=== PATIENT | male | born 1985 | race Two or more races ===

== ENCOUNTER 2017-10-17 04:33 | Emergency (ER) | payer BC ==
[~2017-10-17] VITALS: Ht 188 cm; Wt 109.9 kg
[2017-10-17] MEDS ORDERED: pantoprazole IV 80 MG in normal saline 100ml IV soln 100 ML IV ONE (04:45)
[2017-10-17] MEDS ORDERED: normal saline 1000ML IV soln IV ONE (04:45)
[2017-10-17] MEDS ORDERED: pantoprazole 40 MG vial IV ONE (04:55)
[2017-10-17] MEDS ORDERED: pantoprazole IV 40 MG in normal saline 100ml IV soln 100 ML IV ONE (04:55)
[2017-10-17 05:01] LABS: CLARITY,URINE CLEAR (Clear); COLOR,URINE STRAW (Yellow); GLUCOSE, URINE NEGATIVE (Neg); KETONES,URINE NEGATIVE (Neg); LEUKOCYTE ESTERASE ,URINE NEGATIVE (Neg); NITRITES, URINE NEGATIVE (Neg); OCCULT BLOOD,URINE NEGATIVE (Neg); PH,URINE 6.5 (4.8-8.0); PROTEIN,URINE NEGATIVE (Neg); UROBILINOGEN,URINE 0.2 E.U/dL (0.2-1.0)
[2017-10-17 05:09] LABS: UA COLLECTION TYPE CLN CATCH MIDSTREAM
[2017-10-17] MEDS ORDERED: famotidine 20mg tablet PO ONE (05:10)
[2017-10-17] MEDS ORDERED: LIDOcaine Viscous 15ml cup PO ONE (05:10)
[2017-10-17] MEDS ORDERED: mag hydrox/Alum hydrox/simeth 30ml oral suspension PO ONE (05:10)
[2017-10-17 05:18] LABS: BASOPHILS % (AUTO) 0.6 % (0-1); EOSINOPHILS # (AUTO) 0.3 X10'3 (0-0.9); EOSINOPHILS % (AUTO) 3.6 % (0-6); HEMATOCRIT 42.6 % (42.0-52.0); HEMOGLOBIN 15.1 g/dl (14.0-17.9); LYMPHOCYTES % (AUTO) 27.7 % (21-51); MEAN CORPUSCULAR HEMOGLOBIN 29.9 PG (27.0-31.0); MEAN CORPUSCULAR HGB CONC 35.3 % (33.0-36.5); MEAN CORPUSCULAR VOLUME 84.5 FL (78-98); MEAN PLATELET VOLUME 8.1 FL (7.4-10.4); MONOCYTES # (AUTO) 0.7 X10'3 (0-0.9); MONOCYTES % (AUTO) 9.3 % (2-12); NEUTROPHILS # (AUTO) 4.2 X10'3 (1.8-7.7); NEUTROPHILS % (AUTO) 58.8 % (42-75); PLATELET COUNT 266 X10'3 (140-440); RED BLOOD COUNT 5.04 X10'6 (4.70-6.10); RED CELL DISTRIBUTION WIDTH 12.8 % (11.5-14.5); WHITE BLOOD COUNT 7.2 X10'3 (4.5-11.0)
[2017-10-17 05:33] LABS: ALANINE AMINOTRANSFERASE 68 U/L (12-78); ALBUMIN 3.9 G/DL (3.4-5.0); ALBUMIN/GLOBULIN RATIO 1.1 (1.1-1.5); ALKALINE PHOSPHATASE 61 IU/L (46-116); ANION GAP 9 (8-16); ASPARTATE AMINO TRANSFERASE 23 U/L (10-37); BILIRUBIN,TOTAL 0.3 MG/DL (0.1-1.0); BLOOD UREA NITROGEN 11 MG/DL (7-18); BUN/CREATININE RATIO 11.3 (5.4-32.0); CALCIUM 9.4 MG/DL (8.5-10.1); CHLORIDE 105 MMOL/L (99-107); CREATININE 0.97 MG/DL (0.60-1.10); GLUCOSE 87 MG/DL (70-104); PROTHROMBIN TIME 10.2 SECONDS (9.0-12.0); SODIUM 140 MMOL/L (135-145); TOTAL CARBON DIOXIDE 25.8 MMOL/L (24-32); TOTAL PROTEIN 7.4 G/DL (6.4-8.2); eGFR 89 ML/MIN
[2017-10-17] MEDS ORDERED: PANT20TA2 PO (06:06)
[2017-10-17 06:24] VITALS: BP 147/102
[2017-10-17 09:35] LABS: OCCULT BLOOD STOOL NEGATIVE (Neg)
== END 2017-10-17 06:25 | disposition home or self-care (01) ==
LOC: ER 04:33
DX: K29.00 Acute gastritis without bleeding (principal); Z79.899 Other long term (current) drug therapy
CPT/HCPCS: 36415; 80053; 81003; 82272; 85025; 85610; 86885; 86900; 86901; 96361; 96374; 99284; C9113; J7030

== ENCOUNTER 2018-08-23 09:46 | Day surgery (SDC) | payer BC ==
[~2018-08-23] VITALS: Ht 188 cm; Wt 85.2 kg
[~2018-08-23 09:46] MED LIST: PANT20TA2 PO
[2018-08-23 10:15] VITALS: BP 153/96
[2018-08-23] MEDS ORDERED: heparin sodium, porcine/PF 100unit/ml 5ML syringe ICATH ONE (10:40)
[2018-08-23] MEDS ORDERED: LIDOcaine 1% 30ml preserv. free vial SQ ONE (10:40)
[2018-08-23] MEDS ORDERED: fentaNYL/PF 50MCG/1 ML 2ML syringe IV PRN (10:40)
[2018-08-23] MEDS ORDERED: midazolam 2 mg/2 ml injection IV PRN (10:40)
[2018-08-23] MEDS ORDERED: midazolam 2 mg/2 ml injection ONE (10:44)
[2018-08-23] MEDS ORDERED: heparin sodium, porcine/PF 100unit/ml 5ML syringe ONE (10:44)
[2018-08-23] MEDS ORDERED: fentaNYL/PF 50MCG/1 ML 2ML syringe ONE (10:44)
[2018-08-23] MEDS ORDERED: LIDOcaine 1%/PF 5ML 10 MG/ML VIAL ONE (10:44)
[2018-08-23] MEDS ORDERED: PANT40SU2 PO (10:46)
[2018-08-23] MEDS ORDERED: OXYC-658 PO (10:48)
[2018-08-23] MEDS ORDERED: LISI40TA4 PO (10:49)
[2018-08-23] MEDS ORDERED: ACET-812 PO (10:49)
[2018-08-23] MEDS ORDERED: CHOL2000 PO (10:50)
[2018-08-23] MEDS ORDERED: OMEG1CAP21 PO (10:53)
[2018-08-23] MEDS ORDERED: ASCO-261 PO (10:55)
[2018-08-23] MEDS ORDERED: LACT1CAP65 PO (10:55)
[2018-08-23] MEDS ORDERED: TRAZ150T78 PO (10:56)
[2018-08-23] MEDS ORDERED: UBID100C PO (10:56)
[2018-08-23 11:37] VITALS: BP 167/95
[2018-08-23 11:50] VITALS: BP 149/97
[2018-08-23 12:00] VITALS: BP 155/106
[2018-08-23 12:15] VITALS: BP 168/96
== END 2018-08-23 12:45 | disposition home or self-care (01) ==
LOC: SSTAY O 09:46
PROVIDERS: ATTEND Radiology Diagnostic Radiology
DX: C15.5 Malignant neoplasm of lower third of esophagus (principal); I10 Essential (primary) hypertension; K21.9 Gastro-esophageal reflux disease without esophagitis; G35 Multiple sclerosis; Z79.899 Other long term (current) drug therapy; Z98.890 Other specified postprocedural states
CPT/HCPCS: 36561; 76937; 77001; C1788; C1894; J1642; J2001; J2250; J3010; 99152; 99153; A6219

== ENCOUNTER 2019-04-11 07:49 | Day surgery (SDC) | payer BC ==
[~2019-04-11] VITALS: Ht 188 cm; Wt 73.8 kg
[~2019-04-11 07:49] MED LIST changes: +ACET-812 PO; +ASCO-261 PO; +CHOL2000 PO; +LACT1CAP65 PO; +LISI40TA4 PO; +OMEG1CAP21 PO; +OXYC-658 PO; -PANT20TA2 PO; +PANT40SU2 PO; +TRAZ150T78 PO; +UBID100C PO
[2019-04-11] MEDS ORDERED: normal saline 1000ml 1,000 ML IV PRN (08:20)
[2019-04-11] MEDS ORDERED: albumin 25% 100mL bottle x 1 IV PRN (08:20)
[2019-04-11] MEDS ORDERED: FENT1PAT13 TOP (08:45)
[2019-04-11] MEDS ORDERED: LORA-269 PO (08:45)
[2019-04-11] MEDS ORDERED: HYDR4TAB45 PO (08:45)
[2019-04-11] MEDS ORDERED: ONDA8TAB13 PO (08:45)
[2019-04-11] MEDS ORDERED: GABA-532 PO (08:45)
[2019-04-11] MEDS ORDERED: VANC1VIA21 PO (08:45)
[2019-04-11] MEDS ORDERED: PROC-8 PO (08:45)
[2019-04-11 09:00] VITALS: BP 139/92
== END 2019-04-11 09:30 | disposition home or self-care (01) ==
LOC: SSTAY O 07:49
PROVIDERS: ATTEND Radiology Diagnostic Radiology
DX: R18.8 Other ascites (principal); Z88.8 Allergy status to other drugs, medicaments and biological substances
CPT/HCPCS: 76705

== ENCOUNTER 2019-04-15 11:17 | Emergency (ER) | payer BC ==
[~2019-04-15] VITALS: Ht 185.4 cm; Wt 70.0 kg
[~2019-04-15 11:17] MED LIST changes: -ACET-812 PO; -ASCO-261 PO; -CHOL2000 PO; +FENT1PAT13 TOP; +GABA-532 PO; +HYDR4TAB45 PO; -LACT1CAP65 PO; -LISI40TA4 PO; +LORA-269 PO; -OMEG1CAP21 PO; +ONDA8TAB13 PO; -OXYC-658 PO; -PANT40SU2 PO; +PROC-8 PO; -TRAZ150T78 PO; -UBID100C PO; +VANC1VIA21 PO
--- NOTE | 2019-04-15 13:37 | NUR ---
Bedside abdominal paracentesis performed by JODI Cárdenas. Total of 4 L removed. Pt tolerated procedure well.
[2019-04-15] MEDS ORDERED: albumin (human) 25% 100 ML IV solution IV ONE (13:45)
[2019-04-15 14:54] VITALS: BP 133/87
== END 2019-04-15 14:59 | disposition home or self-care (01) ==
LOC: ER 11:25
DX: R18.8 Other ascites (principal); R06.02 Shortness of breath; C15.9 Malignant neoplasm of esophagus, unspecified; Z88.8 Allergy status to other drugs, medicaments and biological substances; Z79.899 Other long term (current) drug therapy
CPT/HCPCS: 49083; 96365; 99285; P9047

== ENCOUNTER 2019-04-26 09:14 | Emergency (ER) | payer BC ==
[~2019-04-26] VITALS: Ht 188 cm; Wt 73.0 kg
[2019-04-26 09:28] VITALS: BP 127/78
--- NOTE | 2019-04-26 10:10 | NUR ---
VASCULAR AT BEDSIDE
== END 2019-04-26 10:37 | disposition home or self-care (01) ==
LOC: ER 09:15
DX: R60.0 Localized edema (principal); I10 Essential (primary) hypertension; Z88.8 Allergy status to other drugs, medicaments and biological substances; Z79.899 Other long term (current) drug therapy
CPT/HCPCS: 93970; 99284

== ENCOUNTER 2019-09-14 12:34 | Emergency (ER) | payer BC ==
[~2019-09-14] VITALS: Ht 188 cm; Wt 74.0 kg
[2019-09-14 13:07] LABS: BASOPHILS % (AUTO) 0.6 % (0-1); EOSINOPHILS # (AUTO) 0.1 X10'3 (0-0.9); EOSINOPHILS % (AUTO) 2.4 % (0-6); HEMATOCRIT 39.9 % (42.0-52.0); HEMOGLOBIN 13.4 g/dl (14.0-17.9); LYMPHOCYTES % (AUTO) 26.9 % (21-51); MEAN CORPUSCULAR HEMOGLOBIN 29.1 PG (27.0-31.0); MEAN CORPUSCULAR HGB CONC 33.6 g/dL (33.0-36.5); MEAN CORPUSCULAR VOLUME 86.6 FL (78-98); MEAN PLATELET VOLUME 6.8 FL (7.4-10.4); MONOCYTES # (AUTO) 0.3 X10'3 (0-0.9); MONOCYTES % (AUTO) 7.8 % (2-12); NEUTROPHILS # (AUTO) 2.2 X10'3 (1.8-7.7); NEUTROPHILS % (AUTO) 62.3 % (42-75); PLATELET COUNT 317 X10'3 (140-440); RED BLOOD COUNT 4.61 X10'6 (4.70-6.10); RED CELL DISTRIBUTION WIDTH 16.5 % (11.5-14.5); WHITE BLOOD COUNT 3.6 X10'3 (4.5-11.0)
[2019-09-14 13:23] LABS: ALANINE AMINOTRANSFERASE 14 U/L (12-78); ALBUMIN/GLOBULIN RATIO 0.8 (1.1-1.5); ALKALINE PHOSPHATASE 105 IU/L (46-116); ANION GAP 6 (8-16); ASPARTATE AMINO TRANSFERASE 11 U/L (10-37); BILIRUBIN,TOTAL 0.4 MG/DL (0.1-1.0); BLOOD UREA NITROGEN 12 MG/DL (7-18); BUN/CREATININE RATIO 14.6 (5.4-32.0); CALCIUM 8.9 MG/DL (8.5-10.1); CHLORIDE 105 MMOL/L (99-107); CREATININE 0.82 MG/DL (0.60-1.10); GLUCOSE 91 MG/DL (70-104); LIPASE 51 U/L (73-393); POTASSIUM 3.7 MMOL/L (3.5-5.1); SODIUM 139 MMOL/L (135-145); TOTAL CARBON DIOXIDE 27.7 MMOL/L (24-32); eGFR > 90 ML/MIN
[2019-09-14] MEDS ORDERED: normal saline 1000ML IV soln IVB ONE (14:25)
[2019-09-14] MEDS ORDERED: ondansetron/PF 4mg/2ml inj IV ONE (14:25)
[2019-09-14 15:38] VITALS: BP 128/91
== END 2019-09-14 15:48 | disposition home or self-care (01) ==
LOC: ER 12:35
DX: C15.9 Malignant neoplasm of esophagus, unspecified (principal); R53.83 Other fatigue; R14.0 Abdominal distension (gaseous); I10 Essential (primary) hypertension; Z85.01 Personal history of malignant neoplasm of esophagus; Z79.2 Long term (current) use of antibiotics; Z88.8 Allergy status to other drugs, medicaments and biological substances; Z79.899 Other long term (current) drug therapy
CPT/HCPCS: 36415; 80053; 83690; 85025; 96374; 99283; J2405; J7030; 96361

== ENCOUNTER 2019-09-20 14:01 | Emergency (ER) | payer BC ==
[~2019-09-20] VITALS: Ht 188 cm; Wt 77.3 kg
[2019-09-20 15:19] VITALS: BP 123/83
== END 2019-09-20 15:21 | disposition home or self-care (01) ==
LOC: ER 14:02
DX: R18.8 Other ascites (principal); R14.0 Abdominal distension (gaseous); R11.10 Vomiting, unspecified; R19.7 Diarrhea, unspecified; I10 Essential (primary) hypertension; Z85.9 Personal history of malignant neoplasm, unspecified; Z88.8 Allergy status to other drugs, medicaments and biological substances; Z79.2 Long term (current) use of antibiotics; Z79.899 Other long term (current) drug therapy
CPT/HCPCS: 99281

== ENCOUNTER 2019-09-23 08:00 | Day surgery (SDC) | payer BC ==
[~2019-09-23] VITALS: Ht 188 cm; Wt 74.8 kg
[2019-09-23 08:15] VITALS: BP 131/78
[2019-09-23] MEDS ORDERED: normal saline 1000ml 1,000 ML IV PRN (08:20)
[2019-09-23] MEDS ORDERED: albumin 25% 100mL bottle x 1 IV PRN (08:20)
[2019-09-23 09:28] VITALS: BP 133/86
[2019-09-23 09:35] VITALS: BP 130/84
[2019-09-23 09:45] VITALS: BP 136/81
[2019-09-23 09:50] VITALS: BP 131/80
== END 2019-09-23 10:15 | disposition home or self-care (01) ==
LOC: SSTAY O 08:00
PROVIDERS: ATTEND Radiology Diagnostic Radiology
DX: R18.8 Other ascites (principal); I10 Essential (primary) hypertension; G35 Multiple sclerosis; K21.9 Gastro-esophageal reflux disease without esophagitis; G89.29 Other chronic pain; G62.9 Polyneuropathy, unspecified; Z98.890 Other specified postprocedural states; Z85.01 Personal history of malignant neoplasm of esophagus; Z79.899 Other long term (current) drug therapy
CPT/HCPCS: 49083